=== PATIENT | female | born 2005 | race Two or more races ===

== ENCOUNTER 2024-08-28 09:15 | Emergency (ER) | payer MEDICAID, OTHER ==
[~2024-08-28] VITALS: Ht 160 cm; Wt 63.5 kg
[2024-08-28 09:41] VITALS: BP 121/75; PULSE 89; RESP 18; TEMP 97.5; O2SAT 99
[2024-08-28 09:47] LABS: Basophils # (auto) 0 10 ^3/uL (0-0.2); Basophils % (auto) 0.2 % (0.0-2.0); Eosinophils # (auto) 0 10 ^3/uL (0-0.8); Eosinophils % (auto) 0.2 % (0.0-7.0); Hemoglobin 13.4 g/dL (12.2-16.2); Lymphocytes # (auto) 0.9 10 ^3/uL (0.4-5.4); Lymphocytes % (auto) 15.8 % (10.0-50.0); Mean Corpuscular Hemoglobin 30.5 pg (28.0-32.0); Mean Corpuscular Hgb Conc. 33.6 g/dL (32.0-36.0); Mean Corpuscular Volume 90.8 fL (80.0-100.0); Monocytes # (auto) 0.5 10 ^3/uL (0-1.3); Monocytes % (auto) 9.9 % (0.0-12.0); Neutrophils # (auto) 4.1 10 ^3/uL (1.6-8.6); Neutrophils % (auto) 73.9 % (37.0-80.0); Nucleated Red Blood Cells % 0.1 %; Platelet Count (auto) 236 10^3/uL (140-450); Red Cell Distribution Width 12.9 % (11.8-14.3); White Blood Cell 5.5 10^3/uL (4.4-10.8)
[2024-08-28 09:54] LABS: Chloride 103 mmol/L (98-107); Potassium 3.9 mmol/L (3.5-5.1); Sodium 137 mmol/L (136-145)
[2024-08-28 09:55] LABS: Anion Gap 7 (5-15); Carbon Dioxide 27 mmol/L (20-31)
--- NOTE | 2024-08-28 09:55 | ED.PDOC ---
History of Present Illness HPI Comments A 19 YEAR OLD FEMALE PRESENTS TO THE ED WITH COMPLAINT OF LEFT PELVIC PAIN. PATIENT STATES SHE HAS BEEN EXPERIENCING LEFT-SIDED PELVIC PAIN FOR THE PAST 3 DAYS. PATIENT DENIES DYSURIA, HEMATURIA, VAGINAL DISCHARGE, FEVER, CHILLS, SHORTNESS OF BREATH, CHEST PAIN, ABDOMINAL PAIN, NAUSEA, VOMITING, HEADACHE, OR OTHER COMPLAINTS. NO OTHER SYMPTOMS OR MODIFYING FACTORS AT THIS TIME. PATIENT IS ALERT, ORIENTED X 4, AND HAS STEADY GAIT. Chief Complaint: Pelvic Pain Time Seen by MD: 09:21 Reviewed Notes: Nurses Notes, Medications, Allergies Allergies: Coded Allergies: Pineapple (Verified Allergy, Unknown, 08/28/24) Uncoded Allergies: cashew (Allergy, Unknown, 08/28/24) Home Meds Active Scripts Ibuprofen (Ibuprofen) 600 Mg Tab, 1 TAB PO TID, #30 TAB Prov:KAYLIN TINSLEY 08/28/24 Information Source: Patient Mode of Arrival: Ambulatory Severity: Moderate Timing: Days Duration: Intermittent, Days Prehospital treatment: None Medication Refill: For: Other (LEFT PELVIC PAIN) Past Medical History PAST MEDICAL HISTORY: Denies Surgical History: Denies all surgeries BUSINESS SUPPORT ASSOCIATE History: No Pertinent BUSINESS SUPPORT ASSOCIATE History Family History Family History: Reviewed,noncontributory to illness Social History Smoker: Non-Smoker Alcohol: Denies ETOH Use Drugs: Denies Drug Use Lives In: Home Constitutional: denies: chills, diaphoresis, fatigue, fever, malaise, sweats, weakness, others EENTM: denies: blurred vision, double vision, ear bleeding, ear discharge, ear drainage, ear pain, ear ringing, eye pain, eye redness, hearing loss, mouth pain, mouth swelling, nasal discharge, nose bleeding, nose congestion, nose pain, photophobia, tearing, throat pain, throat swelling, voice changes, others Respiratory: denies: cough, hemoptysis, orthopnea, SOB at rest, shortness of breath, SOB with excertion, stridor, wheezing, others Cardiovascular: denies: chest pain, dizzy spells, diaphoresis, Dyspnea on exertion, edema, irregular heart beat, left arm pain, lightheadedness, palpitations, PND, syncope, others Gastrointestinal: denies: abdomen distended, abdominal pain, blood streaked bowels, constipated, diarrhea, dysphagia, difficulty swallowing, hematemesis, melena, nausea, poor appetite, poor fluid intake, rectal bleeding, rectal pain, vomiting, others Genitourinary: reports: pain (LEFT-SIDED PELVIC PAIN); denies: abnormal vagina bleeding, burning, dyspareunia, dysuria, flank pain, frequency, hematuria, incontinence, , vagina discharge, urgency, others Neurological: denies: dizziness, fainting, headache, left sided numbness, left sided weakness, numbness, paresthesia, pre-existing deficit, right sided numbness, right sided weakness, seizure, speech problems, tingling, tremors, weakness, others Musculoskeletal: denies: back pain, gout, joint pain, joint swelling, muscle pain, muscle stiffness, neck pain, others Integumetry: denies: bruises, change in color, change in hair/nails, dryness, laceration, lesions, lumps, rash, wounds, others Allergic/Immunocompromised: denies: Difficulty Healing, Frequent Infections, Hives, Itching, others Hematologic/Lymphatic: denies: anemia, blood clots, easy bleeding, easy bruising, swollen glands, others Endocrine: denies: excessive hunger, excessive sweating, excessive thirst, excessive urination, flushing, intolerance to cold, intolerance to heat, unexplained weight gain, unexplained weight loss, others Psychiatric: denies: anxiety, bipolar disorder, depression, hopeless, panic disorder, schizophrenia, sleepless, suicidal, others All Other Systems: Reviewed and Negative Physical Exam General Appearance: No Apparent Distress, Normal HEENT: Normal ENT Inspection, PERRL/EOMI, Pharynx Normal, TMs Normal Neck: Full Range of Motion, Non-Tender, Normal, Normal Inspection Respiratory: Chest Non-Tender, Lungs Clear, No Accessory Muscle Use, No Respiratory Distress, Normal Breath Sounds Cardiovascular: No Edema, No JVD, No Murmur, No Gallop, Normal Peripheral Pulses, Regular Rate/Rhythm Breast Exam: Deferred Gastrointestinal: No Organomegaly, Non Tender, No Pulsatile Mass, Normal Bowel Sounds, Soft Genitalia: Deferred Pelvic: Normal External Exam, Tender Adnexa (TENDERNESS LEFT PELVIC, NO GUARDING AND REBOUND TENDERNESS. ), Tender Uterus Rectal: Deferred Extremities: No calf tenderness, Normal capillary refill, Normal inspection, Normal range of motion, Non-tender, No pedal edema Musculoskeletal : Apperance: Normal Neurologic: Alert, pick up driver II-XII nml as Tested, No Motor Deficits, Normal Affect, Normal Mood, No Sensory Deficits Cerebellar Function: Normal Reflexes: Normal Skin: Dry, Normal Color, Warm Peripheral Pulses: 2+ carotid (R), 2+ carotid (L) Lymphatic: No Adenopathy Was a procedure done? Was a procedure done?: No Differential Dx Considerations may include: LEFT-SIDED PELVIC PAIN, UTI, ACUTE CYSTITIS, BACTERIAL VAGINITIS, OVARIAN CYST, UTERINE FIBROID, MUSCLE STRAIN X-Ray, Labs, Meds, VS Vital Signs Date Time Temp Pulse Resp B/P (MAP) Pulse Ox O2 Delivery O2 Flow Rate FiO2 08/28/24 09:41 97.5 89 18 121/75 (90) 99 97.5 08/28/24 09:41 89 18 99 Room Air 08/28/24 09:21 97.5 89 18 121/75 (90) 99 Lab Test 08/28/24 09:59 08/28/24 09:37 08/28/24 09:26 Range/Units Urine Color Light-yellow Yellow Urine Clarity Clear Clear Urine pH 5.5 5.0-9.0 Urine Specific Colt 1.034 1.001-1.035 Urine Protein Negative Negative Urine Ketones Negative Negative Urine Blood Negative Negative /uL Urine Nitrite Negative Negative Urine Bilirubin Negative Negative Urine Urobilinogen Normal Negative mg/dL Urine Leukocyte Esterase Negative Negative /uL Urine RBC 1 0 - 4 /hpf Urine Microscopic WBC < 1 0-5 /HPF Urine Squamous Epithelial Cells Few <5 /hpf Urine Bacteria None seen None Seen /hpf Urine Glucose 4+ H Normal mg/dL Urine Test Negative Negative White Blood Count 5.5 4.4-10.8 10^3/uL Red Blood Count 4.40 4.0-5.20 10^6/uL Hemoglobin 13.4 12.2-16.2 g/dL Hematocrit 40.0 36.0-46.0 % Mean Corpuscular Volume 90.8 80.0-100.0 fL Mean Corpuscular Hemoglobin 30.5 28.0-32.0 pg Mean Corpuscular Hemoglobin Concent 33.6 32.0-36.0 g/dL Red Cell Distribution Width 12.9 11.8-14.3 % Platelet Count 236 140-450 10^3/uL Mean Platelet Volume 9.7 6.9-10.8 fL Neutrophils (%) (Auto) 73.9 37.0-80.0 % Lymphocytes (%) (Auto) 15.8 10.0-50.0 % Monocytes (%) (Auto) 9.9 0.0-12.0 % Eosinophils (%) (Auto) 0.2 0.0-7.0 % Basophils (%) (Auto) 0.2 0.0-2.0 % Neutrophils # (Auto) 4.1 1.6-8.6 10 ^3/uL Lymphocytes # (Auto) 0.9 0.4-5.4 10 ^3/uL Monocytes # (Auto) 0.5 0-1.3 10 ^3/uL Eosinophils # (Auto) 0 0-0.8 10 ^3/uL Basophils # (Auto) 0 0-0.2 10 ^3/uL Nucleated Red Blood Cells 0.1 % Sodium Level 137 136-145 mmol/L Potassium Level 3.9 3.5-5.1 mmol/L Chloride Level 103 98-107 mmol/L Carbon Dioxide Level 27 20-31 mmol/L Anion Gap 7 5-15 Blood Urea Nitrogen 7 L 9-23 mg/dL Creatinine 0.87 0.550-1.02 mg/dL Glomerular Filtration Rate Calc 98 >90 mL/min BUN/Creatinine Ratio 8.0 L 10.0-20.0 Serum Glucose 240 H 74-106 mg/dL Calcium Level 10.0 8.7-10.4 mg/dL POC Glucose 266 H 70-106 mg/dl Current Medications Medications (Trade) Dose Ordered Sig/Stephany Route Start Time Stop Time Status Last Admin Ketorolac Tromethamine (Toradol Injection) 60 mg ONCE ONCE IM 08/28/24 11:15 08/28/24 11:16 DC 08/28/24 11:12 INDICATION: LEFT PELVIC PAIN TECHNIQUE: Multiple real-time grayscale transabdominal sonographic images along with color and duplex Doppler of the uterus and ovaries were obtained. COMPARISON: None FINDINGS: The uterus measures 6 x 5 x 3 cm. The endometrial stripe measures 0.6 cm. The right ovary measures 4 x 2 x 3 cm. The left ovary measures 3 x 2 x 2 cm. 3 x 1 x 2 cm abdominal wall cyst is noetd. Subsequent color and duplex Doppler interrogation of the ovaries demonstrated symmetric vascular flow to both ovaries, though this does not exclude the possibility of torsion due to the dual blood supply. IMPRESSION: 1. Grossly unremarkable pelvic ultrasound. ATED BY: ASAF BLUE MD DICTATED DATE/TIME: 08/28/24 1111 SIGNED BY: ASAF BLUE MD SIGNED DATE/TIME: 08/28/24 1111 CC: X-Ray, Labs, Meds, VS Comment EXTERNAL MEDICAL RECORDS REVIEWED: [NONE] INDEPENDENT HISTORIANS: [NONE] SOCIAL DETERMINANTS OF HEALTH: [NONE] LABS ORDERED: UA, URINE REVIEWED AND INTERPRETED RESULTS: UGLU 4+, GLUC 240 IMAGING ORDERED: US PELVIS TREATMENTS ORDERED: TORADOL 60MG IM PROCEDURES PERFORMED: NONE CRITICAL CARE TIME: NONE I HAVE DISCUSSED THE PATIENT WITH THE ATTENDING PHYSICIAN DR. HARTMANN AND HE AGREES WITH THE PATIENT'S PLAN OF CARE AND DISPOSITION. BASED ON HISTORY OF PRESENT ILLNESS, AND PHYSICAL EXAM, PATIENT WILL BE DISCHARGED HOME. DISCUSSED PLAN FOR DISCHARGE HOME WITH RX [IBUPROFEN 800MG]. MEDICATION WARNINGS GIVEN. SHARED DECISION MAKING: PATIENT INSTRUCTED TO FOLLOW UP WITH PRIMARY CARE PROVIDER IN 1-2 DAYS FOR RE-EVALUATION OF SYMPTOMS. PATIENT VERBALIZES UNDERSTANDING TO RETURN TO ED FOR NEW OR WORSENING SYMPTOMS OR IF FOLLOW UP WITH PCP CANNOT BE OBTAINED. PATIENT FEELS COMFORTABLE GOING HOME AT THIS TIME. ALL QUESTIONS ADDRESSED AT TIME OF DISCHARGE. Images Reviewed?: Images reviewed and evaluated by me Time of 1ST Reevaluation: 11:25 Reevaluation 1ST: Improved Patient Education/Counseling: Diagnosis, Treatment, Need For Follow Up Family Education/Counseling: Diagnosis, Treatment, Need For Follow Up Medical Screening: No EMC Exist At This Time Departure 1 Departure Time of Disposition: 11:26 Impression: Primary Impression: Abdominal cyst Additional Impression: Hx of diabetes mellitus Disposition: 01 HOME / SELF CARE / HOMELESS Condition: Stable Additional Instructions: FOLLOW-UP WITH PCP IN 1 TO 2 DAYS. TAKE MEDICATIONS PRESCRIBED. RETURN TO E D FOR ANY NEW OR WORSENING SYMPTOMS. e-Prescriptions Ibuprofen (Ibuprofen) 600 Mg Tab 1 TAB PO TID, #30 TAB Prov: KAYLIN TINSLEY 08/28/24 Discharged With: Self Critical Care Note Critical Care Time?: No Stability Stability form required: No I personally scribed for KAYLIN TINSLEY ([email or web address]) on 08/28/24 at 09:55. Electronically submitted by Rm Jin ([email or web address]). I personally scribed for KAYLIN TINSLEY ([email or web address]) on 08/28/24 at 11:17. Electronically submitted by Rm Jin ([email or web address]). KAYLIN TINSLEY Aug 28, 2024 09:55
[2024-08-28 10:00] LABS: Urine Bacteria None Seen /hpf (None Seen)
[2024-08-28 10:03] LABS: Blood Urea Nitrogen 7 mg/dL (9-23); Glucose 240 mg/dL (74-106)
[2024-08-28 10:23] LABS: Urine Blood Negative /uL (Negative); Urine Clarity Clear (Clear); Urine Color Light-Yellow (Yellow); Urine Protein, UAD Negative (Negative); Urine Specific Gravity 1.034 (1.001-1.035); Urine Squamous Epithelial Cell FEW /hpf (<5); Urine Urobilinogen Normal (Negative); Urine WBC < 1 /HPF (0-5); Urine pH 5.5 (5.0-9.0)
[2024-08-28] MEDS: KETOROLAC TROMETH 60MG/2ML VIAL IM ONE (11:12)
--- NOTE | 2024-08-28 11:14 | DVH ---
INDICATION: LEFT PELVIC PAIN TECHNIQUE: Multiple real-time grayscale transabdominal sonographic images along with color and duple x Doppler of the uterus and ovaries were obtained. COMPARISON: None FINDINGS: The uterus measures 6 x 5 x 3 cm. The endometrial stripe measures 0.6 cm. The right ovary measures 4 x 2 x 3 cm. The left ovary measures 3 x 2 x 2 cm. 3 x 1 x 2 cm abdominal wall cyst is noetd. Subsequent color and duplex Doppler interrogation of the ovaries demonstrated symmetric vascular flow to both ovaries, though this does not exclude the possibility of torsion due to the dual blood suppl y. IMPRESSION: 1. Grossly unremarkable pelvic ultrasound.
[2024-08-28] MEDS ORDERED: IBUP-1454 PO (11:24)
== END 2024-08-28 11:33 | disposition home or self-care (01) ==
LOC: ER 09:15
DX: L72.8 Other follicular cysts of the skin and subcutaneous tissue (principal); E11.9 Type 2 diabetes mellitus without complications; Z79.1 Long term (current) use of non-steroidal anti-inflammatories (NSAID); Z32.02 Encounter for pregnancy test, result negative
CPT/HCPCS: 36415; 76856; 80048; 81001; 81025; 82947; 85025; 96372; 99285; J1885; 82962

== ENCOUNTER 2024-09-27 23:30 | Emergency (ER) | payer MEDICAID ==
[~2024-09-27] VITALS: Ht 160 cm; Wt 62.5 kg
[~2024-09-27 23:30] MED LIST: IBUP-1454 PO
[2024-09-27 23:55] LABS: Basophils # (auto) 0 10 ^3/uL (0-0.2); Basophils % (auto) 0.3 % (0.0-2.0); Eosinophils # (auto) 0.4 10 ^3/uL (0-0.8); Eosinophils % (auto) 3.4 % (0.0-7.0); Hematocrit 38.2 % (36.0-46.0); Hemoglobin 12.8 g/dL (12.2-16.2); Lymphocytes # (auto) 1.9 10 ^3/uL (0.4-5.4); Lymphocytes % (auto) 17.2 % (10.0-50.0); Mean Corpuscular Hemoglobin 30.9 pg (28.0-32.0); Mean Corpuscular Hgb Conc. 33.6 g/dL (32.0-36.0); Mean Corpuscular Volume 91.9 fL (80.0-100.0); Monocytes # (auto) 0.6 10 ^3/uL (0-1.3); Monocytes % (auto) 5.6 % (0.0-12.0); Neutrophils # (auto) 8.2 10 ^3/uL (1.6-8.6); Neutrophils % (auto) 73.5 % (37.0-80.0); Platelet Count (auto) 227 10^3/uL (140-450); Red Blood Cells 4.16 10^6/uL (4.0-5.20); Red Cell Distribution Width 13.1 % (11.8-14.3); White Blood Cell 11.2 10^3/uL (4.4-10.8)
--- NOTE | 2024-09-27 23:55 | ECG ---
[facility] Test Date: 2024-09-27 Test Time: 23:37:44 Pat Name: KRYSTYNA WALTER Department: ED Room: Gender: F Conference Manager: : 2005 Requested By: VIDAL LIANG Order Number: [id number] Reading MD: Soto Teixeira Measurements Intervals [place] Rate: 90 P: 83 NV: 178 QRS: 134 QRSD: 96 T: 57 QT: 376 QTc: 460 Interpretive Statements Sinus rhythm Left posterior fascicular block Electronically Signed On 10-01-2024 20:37:38 PDT by Soto Teixeira Please click the below link to view image of tracing.
[2024-09-28] MEDS: ASPirin 81 mg TAB PO ONE
[2024-09-28 00:11] LABS: Chloride 101 mmol/L (98-107); Potassium 3.7 mmol/L (3.5-5.1)
[2024-09-28 00:12] LABS: Anion Gap 11 (5-15); Calcium 10.1 mg/dL (8.7-10.4); Carbon Dioxide 24 mmol/L (20-31)
[2024-09-28 00:16] LABS: Sodium 136 mmol/L (136-145)
[2024-09-28 00:17] LABS: BUN/Creatinine Ratio 12.9 (10.0-20.0); Blood Urea Nitrogen 12 mg/dL (9-23)
[2024-09-28 00:19] LABS: Glucose 349 mg/dL (74-106)
--- NOTE | 2024-09-28 00:31 | ED.PDOC ---
HPI Comments 19-year-old female with PMHx DM presents with a chief complaint of chest pain x onset with associated cough. Patient states that her pain is localized to her left chest wall, nonradiating, and rates her pain a 8/10. Patient mentions that the pain is made worse with movement and deep inhalation. Patient denies taking control at this time. Patient denies any injuries or trauma to her chest prior to onset of symptoms. Chief Complaint: Chest Pain Time Seen by MD: 23:40 Reviewed Notes: Medications, Allergies Allergies: Coded Allergies: Pineapple (Verified Allergy, Unknown, 08/28/24) Uncoded Allergies: cashew (Allergy, Unknown, 08/28/24) Home Meds Active Scripts Ibuprofen (Ibuprofen) 600 Mg Tab, 1 TAB PO TID, #30 TAB Prov:KAYLIN TINSLEY 08/28/24 Information Source: Patient Mode of Arrival: Ambulatory Severity: Moderate Timing: Days Duration: Since onset Prehospital treatment: None Location: Chest (L) Radiation: No Radiation Quality: Sharp Onset: With Light Exertion Cardiac Risk Factors: Diabetes PE Risk Factors: None History of: None Vital Signs Vital Signs Date Time Temp Pulse Resp B/P (MAP) Pulse Ox O2 Delivery O2 Flow Rate FiO2 09/28/24 01:45 98.0 86 20 114/77 (89) 97 98.0 09/28/24 01:45 Room Air 09/28/24 00:41 0 21 Physical Exam General: Awake, alert and oriented. No acute distress. Skin: Skin in warm, dry and intact. Appropriate color for ethnicity. HEENT: The head is normocephalic and atraumatic. Conjunctivae are clear without exudates or hemorrhage. Sclera is non-icteric. EOM are intact. No signs of nystagmus. Eyelids are normal in appearance without swelling or lesions. Oral mucosa is pink and moist Neck: The neck is supple with normal range of motion. No JVD. Cardiac: Heart rate and rhythm are normal. No murmurs, gallops, or rubs are auscultated. Respiratory: No signs of respiratory distress. Lung sounds are clear in all lobes bilaterally without rales, ronchi, or wheezes. Abdominal: Abdomen is soft, non-tender without distention. Bowel sounds are present and normoactive in all four quadrants. Extremities: Upper and lower extremities are atraumatic in appearance without deformity or edema. Neurological: The patient is awake, alert and oriented to person, place, and time with normal speech. Speech is clear. There is no facial asymmetry. Psychiatric: Appropriate mood and affect. Good judgement and insight. Review of Systems: REVIEW OF SYSTEMS: No fever, no chills, or fatigue HEENT: No sore throat, no earache, no congestion, no neck pain. Cardiac: Positive chest pain. No palpitations. Lungs: No shortness of breath, no cough. GI: No nausea, no vomiting, no diarrhea, no constipation, no abdominal pain : No dysuria, frequency, or urgency. No hematuria. Musculoskeletal: No joint pain , no joint swelling, no extremity edema. Skin: No rash, no itching. Neuro: No headache, no dizziness, no weakness Past Medical History PAST MEDICAL HISTORY: DM Surgical History: Denies all surgeries HELIARC WELDER History: No Pertinent HELIARC WELDER History Family History Family History: Reviewed,noncontributory to illness Social History Smoker: Non-Smoker Alcohol: Denies ETOH Use Drugs: Denies Drug Use Lives In: Home Was a procedure done? Was a procedure done?: No CP Differential Dx Differential Diagnosis: Other Other Differential Diagnosis Differential diagnoses considered include acute ischemic coronary syndrome, aortic dissection, cardiac tamponade, mediastinitis, pulmonary embolus, pneumothorax, tension pneumothorax, esophageal rupture, coronary artery vasospasm, myocarditis, pericarditis, pneumonia, pulmonary edema, esophageal tear, pancreatitis, aortic stenosis, dilated cardiomyopathy, hypertrophic cardiomyopathy, mitral valve prolapse, malignancy, pleuritis, pneumomediastinum, primary pulmonary hypertension, cholecystitis, esophageal spasm, esophagus, gastritis, GERD, peptic ulcer disease, costochondritis, fibromyalgia, rib fracture, herpes zoster, radicular syndromes, thoracic outlet syndrome, somat ization. X-Ray, Labs, Meds, VS Vital Signs Date Time Temp Pulse Resp B/P (MAP) Pulse Ox O2 Delivery O2 Flow Rate FiO2 09/28/24 01:45 98.0 86 20 114/77 (89) 97 98.0 09/28/24 01:45 86 20 97 Room Air 09/28/24 00:41 90 20 100 Room Air* 0 21 09/28/24 00:35 98.2 100 20 129/74 (92) 97 98.2 09/27/24 23:37 90 09/27/24 23:36 98.5 90 16 115/72 (86) 100 98.5 Lab Test 09/28/24 01:19 09/28/24 00:43 09/27/24 23:43 Range/Units POC Glucose 164 H 70-106 mg/dl Troponin I High Sensitivity < 3 L < 3 L </=34 ng/L White Blood Count 11.2 H 4.4-10.8 10^3/uL Red Blood Count 4.16 4.0-5.20 10^6/uL Hemoglobin 12.8 12.2-16.2 g/dL Hematocrit 38.2 36.0-46.0 % Mean Corpuscular Volume 91.9 80.0-100.0 fL Mean Corpuscular Hemoglobin 30.9 28.0-32.0 pg Mean Corpuscular Hemoglobin Concent 33.6 32.0-36.0 g/dL Red Cell Distribution Width 13.1 11.8-14.3 % Platelet Count 227 140-450 10^3/uL Mean Platelet Volume 10.0 6.9-10.8 fL Neutrophils (%) (Auto) 73.5 37.0-80.0 % Lymphocytes (%) (Auto) 17.2 10.0-50.0 % Monocytes (%) (Auto) 5.6 0.0-12.0 % Eosinophils (%) (Auto) 3.4 0.0-7.0 % Basophils (%) (Auto) 0.3 0.0-2.0 % Neutrophils # (Auto) 8.2 1.6-8.6 10 ^3/uL Lymphocytes # (Auto) 1.9 0.4-5.4 10 ^3/uL Monocytes # (Auto) 0.6 0-1.3 10 ^3/uL Eosinophils # (Auto) 0.4 0-0.8 10 ^3/uL Basophils # (Auto) 0 0-0.2 10 ^3/uL Nucleated Red Blood Cells 0.0 % Sodium Level 136 136-145 mmol/L Potassium Level 3.7 3.5-5.1 mmol/L Chloride Level 101 98-107 mmol/L Carbon Dioxide Level 24 20-31 mmol/L Anion Gap 11 5-15 Blood Urea Nitrogen 12 9-23 mg/dL Creatinine 0.93 0.550-1.02 mg/dL Glomerular Filtration Rate Calc 90 >90 mL/min BUN/Creatinine Ratio 12.9 10.0-20.0 Serum Glucose 349 H 74-106 mg/dL Calcium Level 10.1 8.7-10.4 mg/dL Current Medications Medications (Trade) Dose Ordered Sig/Stehpany Route Start Time Stop Time Status Last Admin Aspirin 324 mg ONCE ONCE PO 09/28/24 00:00 09/28/24 00:01 DC 09/28/24 00:00 Acetaminophen (Tylenol Tablet Or Capsule) 1,000 mg ONCE ONCE PO 09/28/24 00:00 09/28/24 00:01 DC 09/28/24 00:39 Sodium Chloride 1,000 ml @ 1,000 mls/hr Q1H ONCE IV 09/28/24 01:00 09/28/24 01:59 DC 09/28/24 01:00 Time of 1ST Reevaluation: 00:10 Reevaluation 1ST: Unchanged Patient Education/Counseling: Diagnosis, Treatment Family Education/Counseling: No Family Present Departure 1 Departure Time of Disposition: 02:08 Impression: Primary Impression: Chest pain Additional Impression: Hyperglycemia Disposition: 01 HOME / SELF CARE / HOMELESS Condition: Stable Additional Instructions: ED DISCHARGE INSTRUCTIONS Instructions: Please read all instructions provided in this packet carefully. Although you have been discharged from the Emergency Department, this does not mean that you have a "clean bill of health". No definitive diagnosis for your symptoms has been made today. It is possible that you are in the process of developing a serious illness. This is why you must return to the ED without fail if any new or worsening symptoms (especially if your symptoms include chest pain, trouble breathing, abdominal pain, fever, headache, confusion, trouble s eeing, or trouble walking) It is also very important that you see a primary care doctor within the next 3-5 days to follow up. If you are unable to get an appointment, return to the ED for re-evaluation. CHEST PAIN EDUCATION There are many things that can cause chest pain. Some are not serious and will get better on their own in a few days. But some kinds of chest pain need more testing and treatment. Your doctor may have recommended a follow-up visit in the next few days. If you are not getting better, you may need more tests or treatment. Even though your doctor has released you, you still need to watch for any problems. The doctor carefully checked you, but sometimes problems can develop later. If you have new symptoms or if your symptoms do not get better, get medical care right away. If you have worse or different chest pain or pressure that lasts more than 5 minutes or you passed out (lost consciousness), call 911 or seek other emergency help right away. A medical visit is only one step in your treatment. Even if you feel better, you still need to do what your doctor recommends, such as going to all suggested follow-up appointments and taking medicines exactly as directed. This will help you recover and help prevent future problems. How can you care for yourself at home? Rest until you feel better. Take your medicine exactly as prescribed. Call your doctor if you think you are having a problem with your medicine. Do not drive after taking a prescription pain medicine. When should you call for help? Call 911 if: You passed out (lost consciousness). You have severe difficulty breathing. You have symptoms of a heart attack. These may include: Chest pain or pressure, or a strange feeling in your chest. Sweating. Shortness of breath. Nausea or vomiting. Pain, pressure, or a strange feeling in your back, neck, jaw, or upper belly or in one or both shoulders or arms. Lightheadedness or sudden weakness. A fast or irregular heartbeat. After you call 911, the rasper machine operator may tell you to chew 1 adult-strength or 2 to 4 low-dose aspirin. Wait for an ambulance. Do not try to drive yourself. Call your doctor now or seek immediate medical care if: You have any trouble breathing. You have new or different chest pain. You are dizzy or lightheaded, or you feel like you may faint. Watch closely for changes in your health, and be sure to contact your doctor if you do not get better as expected. Current as of: January 22, 2024 Author: [employer] Staff? Comments 19-year-old female with chest pain. EKG negative for signs of ischemia. High sensitivity troponin negative. CXR shows no acute process. Presentation not suggestive of acute coronary syndrome, pulmonary embolism or aortic dissection. Patient improved at time of discharge. No hypoxia, respiratory distress or dyspnea at discharge. Patient able to ambulate without difficulty. Blood sugar improved with IV fluid bolus. Patient well-appearing, nontoxic. Advised prompt follow-up with PCP, return to the ED with any new, worsening or concerning symptoms. Critical Care Note Critical Care Time?: No Stability Stability form required: No Heart Score Heart Score: Heart Score Response (Comments) Value History Slightly Suspicious 0 EKG Normal 0 Age <45 0 Risk Factors 1 or 2 risk factors 1 Troponin Normal limit 0 Total 1 I personally scribed for VIDAL LIANG MD ([email or web address]) on 09/28/24 at 00:31. Electronically submitted by Arturo Durán ([email or web address]). VIDAL LIANG MD Sep 28, 2024 00:31
[2024-09-28] MEDS: ACETAMINOPHEN 500 MG TAB or CAP PO ONE (00:39)
[2024-09-28 00:41] VITALS: PULSE 90; RESP 20; O2SAT 100
--- NOTE | 2024-09-28 00:47 | DVH ---
CHEST RADIOGRAPH Indication: Chest pain Technique: Frontal and lateral view of the chest was obtained Comparison: None FINDINGS: Lines and Tubes: None Lungs: Clear Pleura: No effusion. No pneumothorax. Cardiomediastinal contours: Unremarkable Bones: Unremarkable IMPRESSION: 1. No evidence of acute disease.
[2024-09-28] MEDS ORDERED: POTASSIUM CHL 20 Meq TABLET PO ONE (01:00)
[2024-09-28] MEDS ORDERED: InsuLIN REG 1unit/0.01ml Soln (100units/ml) SC ONE (01:00)
[2024-09-28] MEDS: SODIUM CHLORIDE 0.9% 1,000 ML IV ONE (01:00)
[2024-09-28 01:45] VITALS: BP 114/77; PULSE 86; RESP 20; TEMP 98; O2SAT 97
--- NOTE | 2024-09-28 06:24 | ECG ---
[facility] Test Date: 2024-09-28 Test Time: 00:46:27 Pat Name: KRYSTYNA WALTER Department: ER Room: Gender: F Director Of Cardiopulmonary Services: : 2005 Requested By: VIDAL LIANG Order Number: [id number] Reading MD: Soto Teixeira Measurements Intervals [place] Rate: 84 P: 89 [place]: 175 QRS: 127 QRSD: 92 T: 55 QT: 380 QTc: 450 Interpretive Statements Sinus rhythm Right axis deviation Electronically Signed On 10-01-2024 20:37:54 PDT by Soto Teixeira Please click the below link to view image of tracing.
== END 2024-09-28 02:24 | disposition home or self-care (01) ==
LOC: ER 23:30
DX: R07.89 Other chest pain (principal); E11.65 Type 2 diabetes mellitus with hyperglycemia; Z88.8 Allergy status to other drugs, medicaments and biological substances
CPT/HCPCS: 36415; 71046; 80048; 82947; 84484; 85025; 93005; 96360; 99285; J7030; 82962